=== PATIENT | male | born 1985 | race Two or more races ===

== ENCOUNTER → 2024-09-04 | Outpatient (CLI) | payer OTHER, SELFPAY ==
[2024-09-04 09:19] LABS: Basophils # (Auto) 0.2 Thou/mm3 (0.0-0.2); Basophils % (Auto) 2 % (0-2.5); Eosinophils # (Auto) 0.3 Thou/mm3 (0.0-0.5); Eosinophils % (Auto) 3 % (0-10); Hematocrit 43.4 % (41.0-53.0); Hemoglobin 14.8 g/dL (13.5-16.0); Immature Granulocytes % (Auto) 0 % (0-0); Immature Granulocytes Auto 0.03 Thou/mm3 (0.00-0.00); Lymphocytes # (Auto) 3.8 Thou/mm3 (1.0-4.8); Lymphocytes % (Auto) 36 % (10-50); Mean Corpuscular HGB Conc 34.1 g/dl (31.0-37.0); Mean Corpuscular Hemoglobin 29.6 pg (25.0-35.0); Mean Corpuscular Volume 87 fL (80-100); Monocytes # (Auto) 0.6 Thou/mm3 (0.0-0.8); Monocytes % (Auto) 6 % (0-12); Neutrophils # (Auto) 5.6 Thou/mm3 (1.8-7.7); Neutrophils % (Auto) 53 % (37-80); Nucleated Red Blood Cell % 0 /100 WBC (0); Platelet Count 333 Thou/mm3 (140-440); RDW Standard Deviation 40.3 fL (35.1-43.9); White Blood Count 10.5 Thou/mm3 (3.8-10.6)
[2024-09-04 09:46] LABS: Alanine Aminotransferase 39 U/L (10-49); Albumin, Serum 5.1 gm/dL (3.5-5.0); Alkaline Phosphatase 72 U/L (46-116); Anion Gap 8 (7-16); Aspartate Amino Transferase 27 U/L (0-34); BUN/Creatinine Ratio 10 Ratio (12-20); Bilirubin,Total 0.6 mg/dL (0.3-1.2); Blood Urea Nitrogen 9 mg/dL (9-23); Calcium 9.7 mg/dL (8.3-10.6); Calcium (Corrected) 9.7 mg/dL (8.5-10.1); Carbon Dioxide 24.1 mMol/L (20.0-31.0); Chloride 102 mMol/L (98-107); Creatinine (Component) 0.9 mg/dL (0.6-1.3); Free T4 (Free Thyroxine) 1.42 ng/dL (0.89-1.76); Globulin 2.6 gm/dL (2.3-3.5); Glucose 135 mg/dL (74-106); Osmolality,Calculated 268 (275-295); Sodium 134 mMol/L (136-145); Thyroid Stimulating Hormone 2.25 uIU/mL (0.55-4.78); Total Protein 7.7 gm/dL (5.7-8.2); eGFR > 60 See Note
[2024-09-10 22:06] LABS: Thyroglobulin Antibodies <1 IU/mL (< OR = 1)
== END | disposition home or self-care (01) ==
LOC: COPL 08:47 → SCTO 12:45
PROVIDERS: PCP Internal Medicine; Referring Provider Radiology Therapeutic Radiology; Visit Provider Radiology Therapeutic Radiology
DX: C73 Malignant neoplasm of thyroid gland (principal)
CPT/HCPCS: 36415; 80053; 84432; 84439; 84443; 85025; 86800

== ENCOUNTER → 2024-11-11 | Outpatient (CLI) | payer OTHER, SELFPAY ==
[2024-11-11 09:21] LABS: Basophils # (Auto) 0.1 Thou/mm3 (0.0-0.2); Basophils % (Auto) 1 % (0-2.5); Eosinophils # (Auto) 0.4 Thou/mm3 (0.0-0.5); Eosinophils % (Auto) 4 % (0-10); Hematocrit 41.7 % (41.0-53.0); Hemoglobin 14.2 g/dL (13.5-16.0); Immature Granulocytes % (Auto) 0 % (0-0); Immature Granulocytes Auto 0.04 Thou/mm3 (0.00-0.00); Lymphocytes # (Auto) 3.4 Thou/mm3 (1.0-4.8); Lymphocytes % (Auto) 37 % (10-50); Mean Corpuscular HGB Conc 34.1 g/dl (31.0-37.0); Mean Corpuscular Hemoglobin 29.2 pg (25.0-35.0); Mean Corpuscular Volume 86 fL (80-100); Monocytes # (Auto) 0.5 Thou/mm3 (0.0-0.8); Monocytes % (Auto) 6 % (0-12); Neutrophils # (Auto) 4.6 Thou/mm3 (1.8-7.7); Neutrophils % (Auto) 51 % (37-80); Nucleated Red Blood Cell % 0 /100 WBC (0); Platelet Count 327 Thou/mm3 (140-440); RDW Standard Deviation 41.2 fL (35.1-43.9); Red Blood Count 4.86 Miln/mm3 (4.50-5.90); White Blood Count 9.1 Thou/mm3 (3.8-10.6)
[2024-11-11 09:39] LABS: Alanine Aminotransferase 39 U/L (10-49); Albumin, Serum 4.7 gm/dL (3.5-5.0); Albumin/Globulin Ratio 1.7 (1.2-2.2); Alkaline Phosphatase 69 U/L (46-116); Anion Gap 8 (7-16); Aspartate Amino Transferase 22 U/L (0-34); BUN/Creatinine Ratio 15 Ratio (12-20); Bilirubin,Total 0.8 mg/dL (0.3-1.2); Blood Urea Nitrogen 12 mg/dL (9-23); Calcium 9.5 mg/dL (8.3-10.6); Calcium (Corrected) 9.5 mg/dL (8.5-10.1); Carbon Dioxide 25.9 mMol/L (20.0-31.0); Cardiac Risk Estimate 4.3 RATIO (4.0-6.7); Chloride 100 mMol/L (98-107); Cholesterol 206 mg/dL (132-200); Creatinine (Component) 0.8 mg/dL (0.6-1.3); Globulin 2.7 gm/dL (2.3-3.5); Glucose 157 mg/dL (74-106); HDL Cholesterol 48 mg/dL (40-60); LDL Cholesterol,Calculated 133 mg/dL (0-130); Osmolality,Calculated 270 (275-295); Potassium 4.3 mMol/L (3.4-5.1); Sodium 134 mMol/L (136-145); Total Protein 7.4 gm/dL (5.7-8.2); Triglycerides 126 mg/dL (30-150); eGFR > 60 See Note
[2024-11-11 09:50] LABS: Glucose Estimated Average 160 mg/dL (80-131); Hemoglobin A1C 7.2 % Hgb (4.8-6.0)
== END | disposition home or self-care (01) ==
LOC: COPL 08:34
PROVIDERS: PCP Family Medicine; Referring Provider Family Medicine; Visit Provider Family Medicine
DX: E11.65 Type 2 diabetes mellitus with hyperglycemia (principal); G56.00 Carpal tunnel syndrome, unspecified upper limb; M54.50 Low back pain, unspecified; E03.9 Hypothyroidism, unspecified; I10 Essential (primary) hypertension; E78.5 Hyperlipidemia, unspecified
CPT/HCPCS: 36415; 80053; 80061; 83036; 84443; 85025

== ENCOUNTER 2024-11-14 13:01 | Outpatient (RCR) | payer OTHER, SELFPAY ==
--- NOTE | 2024-11-14 14:02 | CTCFLWUP_ITS ---
[facility] [address] [place], [place] [address] FOLLOW-UP NOTE Date: 11/14/2024 MR#: [id number] Name: LIANE RUIZ : 1985 Dx: [id number] Malignant neoplasm of thyroid gland Identification. 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 pT1b pN1a 7 of 9 lymph nodes positive. Patient initially had excision of left neck mass 05/11/2023 which was papillary thyroid carcinoma. Received 101 mCi administered 08/01/2023. No sign of mets whole-body scan 08/08/2023. For his age group this is stage I. Thyroid ultrasound 02/09/2024 unremarkable with repeat 08/15/2024 revealing soft tissue mass in the th yroid bed. CT neck 09/10/2024 no soft tissue tumor mass in thyroid bed with bilateral carotid triangle lymphaden opathy largest 9 mm. Patient kept euthyroid on thyroid medication 150 mcg 09/04/2024 Free T41.42 TSH 2.25. Thyroglobul in however carin from 2.9 - 4.0 and 09/04/2024. Check thyroid functions thyroglobulin today. Will call patient with results. Electronically signed by: Robb Bello M.D. 11/14/2024 1:59 PM
== END 2024-11-22 23:59 | disposition home or self-care (01) ==
LOC: SCTC 13:01
PROVIDERS: PCP Family Medicine; Referring Provider Family Medicine; Visit Provider Radiology Therapeutic Radiology
DX: C73 Malignant neoplasm of thyroid gland (principal); Z92.3 Personal history of irradiation
CPT/HCPCS: 99213; G0463

== ENCOUNTER → 2024-11-14 | Outpatient (CLI) | payer OTHER, SELFPAY ==
[2024-11-14 16:38] LABS: Thyroid Stimulating Hormone 5.61 uIU/mL (0.55-4.78)
[2024-11-20 11:17] LABS: Thyroglobulin Antibodies <1 IU/mL (< OR = 1)
[2024-11-21 06:37] LABS: Thyroglobulin 3.6 ng/mL
== END | disposition home or self-care (01) ==
LOC: SCTO 14:41
PROVIDERS: PCP Family Medicine; Referring Provider Radiology Therapeutic Radiology; Visit Provider Radiology Therapeutic Radiology
DX: C73 Malignant neoplasm of thyroid gland (principal)
CPT/HCPCS: 36415; 84432; 84439; 84443; 86800

== ENCOUNTER → 2024-11-15 | Outpatient (CLI) | payer OTHER, SELFPAY ==
[2024-11-15 16:29] LABS: Amphetamine/Methamp Scrn,U Negative (Negative); Barbiturate Screen,Urine Negative (Negative); Benzodiazepines Screen,Urine Negative (Negative); Benzoylecgonine Screen, Ur Negative (Negative); Fentanyl Screen,Urine Negative (Negative); Opiate Screen,Urine Positive (Negative); THC Screen,Urine Negative (Negative)
== END | disposition home or self-care (01) ==
LOC: SLDO 14:29
PROVIDERS: PCP Family Medicine; Referring Provider Family Medicine; Visit Provider Family Medicine
DX: Z79.891 Long term (current) use of opiate analgesic (principal)
CPT/HCPCS: 80307

== ENCOUNTER → 2024-12-13 | Outpatient (CLI) | payer OTHER, SELFPAY ==
--- NOTE | 2024-12-13 07:00 | XR_ITS ---
Examination: MRI lumbar spine without contrast Date and time of exam: December 13, 2024 0709 hours Comparison March 21, 2019 INDICATIONS: Low back pain 20 years, radiating into the legs with numbness paresthesias and weakness in the legs Technique: Multiple MRI axial and sagittal sections lumbar spine. Sagittal T2-weighted images, TR 3500, TE 118 T1 weighted transverse sections, TR 688 T8.5, T2-weighted sagittal sections T1 weighted sagittal sections TR 621, TE 30 T2 axial sections, TR 4, 190, TE 84. Findings: Adequate alignment lumbar vertebral bodies No lumbar fracture Disc desiccation L3-L4, L4-L5 Moderate disc narrowing L3-L4 No spondylolisthesis L5-S1 no disc protrusion L4-L5 7 mm left paracentral disc bulge indenting the ventral margin thecal sac and displacing the left L5 nerve root L3-L4 5 mm central lumbar disc bulge L2-L3 no disc protrusion L1-L2 no disc protrusion IMPRESSION: L4-L5 7 mm left paracentral disc bulge displacing the left L5 nerve root L3-L4 5 mm central lumbar disc bulge
== END | disposition home or self-care (01) ==
LOC: SMRI 06:42
PROVIDERS: PCP Family Medicine; Referring Provider Family Medicine; Visit Provider Family Medicine
DX: M51.369 Other intervertebral disc degeneration, lumbar region without mention of lumbar back pain or lower extremity pain (principal)
CPT/HCPCS: 72148

== ENCOUNTER → 2025-01-24 | Outpatient (CLI) | payer OTHER, SELFPAY ==
[2025-01-24 09:39] LABS: Glucose Estimated Average 137 mg/dL (80-131); Hemoglobin A1C 6.4 % Hgb (4.8-6.0)
[2025-01-24 09:58] LABS: Alanine Aminotransferase 46 U/L (10-49); Albumin, Serum 4.9 gm/dL (3.5-5.0); Albumin/Globulin Ratio 1.8 (1.2-2.2); Alkaline Phosphatase 71 U/L (46-116); Anion Gap 12 (7-16); Aspartate Amino Transferase 28 U/L (0-34); BUN/Creatinine Ratio 12 Ratio (12-20); Bilirubin,Total 0.8 mg/dL (0.3-1.2); Blood Urea Nitrogen 11 mg/dL (9-23); Calcium 9.9 mg/dL (8.3-10.6); Calcium (Corrected) 9.9 mg/dL (8.5-10.1); Carbon Dioxide 24.7 mMol/L (20.0-31.0); Chloride 101 mMol/L (98-107); Creatinine (Component) 0.9 mg/dL (0.6-1.3); Globulin 2.8 gm/dL (2.3-3.5); Glucose 123 mg/dL (74-106); Osmolality,Calculated 276 (275-295); Sodium 138 mMol/L (136-145); Thyroid Stimulating Hormone 0.32 uIU/mL (0.55-4.78); Total Protein 7.7 gm/dL (5.7-8.2); eGFR > 60 See Note
[2025-01-24 10:11] LABS: Cardiac Risk Estimate 4.3 RATIO (4.0-6.7); Cholesterol 193 mg/dL (132-200); HDL Cholesterol 45 mg/dL (40-60); LDL Cholesterol,Calculated 126 mg/dL (0-130); Triglycerides 110 mg/dL (30-150)
== END | disposition home or self-care (01) ==
LOC: COPL 08:50
PROVIDERS: PCP Family Medicine; Referring Provider Family Medicine; Visit Provider Family Medicine
DX: E11.311 Type 2 diabetes mellitus with unspecified diabetic retinopathy with macular edema (principal); M54.17 Radiculopathy, lumbosacral region; I10 Essential (primary) hypertension; G56.03 Carpal tunnel syndrome, bilateral upper limbs; G47.30 Sleep apnea, unspecified
CPT/HCPCS: 36415; 80053; 80061; 83036; 84436; 84443

== ENCOUNTER 2025-02-13 12:52 | Outpatient (RCR) | payer OTHER, SELFPAY ==
--- NOTE | 2025-02-13 13:37 | CTCFLWUP_ITS ---
[facility] [address] [place], [place] [address] FOLLOW-UP NOTE Date: 02/13/2025 MR#: [id number] Name: LIANE RUIZ : 1985 Dx: [id number] Malignant neoplasm of thyroid gland Identification. 39-year-old gentleman with thyroid carcinoma papillary follicular type underwent total thyroidectomy 06/13/2023 revealing 1.2 x 1 x 1 cm papillary carcinoma follicular variant right lobe 7 positive nodes [id number] 7 of 9 lymph nodes positive. Patient initially had excision of left neck mass 05/11/2023 which was papillary thyroid carcinoma. Received 101 mCi of radioactive iodine 08/01/2023 with no signs of mets whole- body scan 07/29/2023. For his age group this is stage I. Thyroid ultrasound 02/09/2024 unremarkable with repeat 08/15/2024 revealing soft tissue mass in the thyroid bed. Most recent CT of the neck 09/10/2024 showed no soft tissue tumor mass in thyroid bed with bilateral carotid triangle lymphadenopathy largest 9 mm. Most recent lab January 24, 2025 T4 14 (H) TSH 0.32 (L) Patient has been combining Synthroid 150 with Synthroid 175 and based on the new blood test is primary care provider Recommended cutting it to 125 and 150 in alternating days. I believe that this is appropriate. Will check his labs based on the now lower dose of thyroid medication and check his thyroglobulin and thyroglobulin antibody along with new T4 and TSH. Patient also having some chest discomfort along with blood pressure problem which is being followed by primary care physician as well. I will see him back in 3 months with new labs and likely order an ultrasound of his neck. Electronically signed by: Robb Bello M.D. 02/13/2025 1:35 PM
== END 2025-02-19 23:59 | disposition home or self-care (01) ==
LOC: SCTC 12:52
PROVIDERS: PCP Family Medicine; Referring Provider Family Medicine; Visit Provider Radiology Therapeutic Radiology
DX: C73 Malignant neoplasm of thyroid gland (principal); E89.0 Postprocedural hypothyroidism; Z92.3 Personal history of irradiation; Z79.890 Hormone replacement therapy
CPT/HCPCS: 99213; G0463

== ENCOUNTER → 2025-05-09 | Outpatient (CLI) | payer MEDICARE, OTHER, SELFPAY ==
[2025-05-09 13:23] LABS: Basophils # (Auto) 0.2 Thou/mm3 (0.0-0.2); Basophils % (Auto) 2 % (0-2.5); Eosinophils # (Auto) 0.4 Thou/mm3 (0.0-0.5); Eosinophils % (Auto) 3 % (0-10); Hematocrit 38.9 % (41.0-53.0); Hemoglobin 13.7 g/dL (13.5-16.0); Immature Granulocytes Auto 0.05 Thou/mm3 (0.00-0.00); Lymphocytes # (Auto) 4.1 Thou/mm3 (1.0-4.8); Lymphocytes % (Auto) 34 % (10-50); Mean Corpuscular HGB Conc 35.2 g/dl (31.0-37.0); Mean Corpuscular Hemoglobin 30.2 pg (25.0-35.0); Mean Corpuscular Volume 86 fL (80-100); Monocytes # (Auto) 0.8 Thou/mm3 (0.0-0.8); Monocytes % (Auto) 7 % (0-12); Neutrophils # (Auto) 6.5 Thou/mm3 (1.8-7.7); Neutrophils % (Auto) 54 % (37-80); Nucleated Red Blood Cell # 0.00 Thou/mm3 (0.00-0.00); Nucleated Red Blood Cell % 0 /100 WBC (0); Platelet Count 387 Thou/mm3 (140-440); RDW Standard Deviation 41.2 fL (35.1-43.9); Red Blood Count 4.54 Miln/mm3 (4.50-5.90); White Blood Count 12.0 Thou/mm3 (3.8-10.6)
[2025-05-09 13:33] LABS: Glucose Estimated Average 143 mg/dL (80-131); Hemoglobin A1C 6.6 % Hgb (4.8-6.0)
[2025-05-09 13:36] LABS: Alanine Aminotransferase 44 U/L (10-49); Albumin, Serum 4.9 gm/dL (3.5-5.0); Albumin/Globulin Ratio 1.7 (1.2-2.2); Alkaline Phosphatase 68 U/L (46-116); Anion Gap 11 (7-16); Aspartate Amino Transferase 30 U/L (0-34); BUN/Creatinine Ratio 9 Ratio (12-20); Bilirubin,Total 0.6 mg/dL (0.3-1.2); Blood Urea Nitrogen 9 mg/dL (9-23); Calcium 9.5 mg/dL (8.3-10.6); Calcium (Corrected) 9.5 mg/dL (8.5-10.1); Carbon Dioxide 28.4 mMol/L (20.0-31.0); Cardiac Risk Estimate 4.7 RATIO (4.0-6.7); Chloride 103 mMol/L (98-107); Cholesterol 219 mg/dL (132-200); Creatinine (Component) 1.0 mg/dL (0.6-1.3); Free T4 (Free Thyroxine) 1.39 ng/dL (0.89-1.76); Globulin 2.9 gm/dL (2.3-3.5); Glucose 92 mg/dL (74-106); HDL Cholesterol 47 mg/dL (40-60); LDL Cholesterol,Calculated 138 mg/dL (0-130); Osmolality,Calculated 281 (275-295); Potassium 4.2 mMol/L (3.4-5.1); Sodium 142 mMol/L (136-145); Thyroid Stimulating Hormone 1.75 uIU/mL (0.55-4.78); Total Protein 7.8 gm/dL (5.7-8.2); Triglycerides 172 mg/dL (30-150); eGFR > 60 See Note
[2025-05-09 13:37] LABS: T4 (Thyroxine) 10.1 mcg/dL (4.5-10.9)
[2025-05-15 06:27] LABS: Thyroglobulin Antibodies* <1 IU/mL (< OR = 1)
== END | disposition home or self-care (01) ==
LOC: COPL 12:10
PROVIDERS: PCP Family Medicine; Referring Provider Family Medicine; Visit Provider Family Medicine
DX: C73 Malignant neoplasm of thyroid gland (principal); E03.9 Hypothyroidism, unspecified; E11.9 Type 2 diabetes mellitus without complications
CPT/HCPCS: 36415; 80053; 80061; 83036; 84436; 84439; 84443; 85025; 86800

== ENCOUNTER 2025-05-15 13:44 | Outpatient (RCR) | payer OTHER, MEDICARE, SELFPAY ==
--- NOTE | 2025-05-15 14:28 | CTCFLWUP_ITS ---
[facility] Pleite[facility] [address] [place], [place] [address] FOLLOW-UP NOTE Date: 05/15/2025 MR#: [id number] Name: LIANE RUIZ : 1985 Dx: [id number] Malignant neoplasm of thyroid gland Identification. 39-year-old gentleman with thyroid carcinoma papillary follicular type total thyroidectomy 06/13/2023 revealing 1.2 x 1 x 1 cm papillary carcinoma follicular variant right lobe 7 positive nodes, [id number] 7 of 9 lymph nodes positive. Received 101 mCi of radioiodine 08/01/2023 no signs of mets whole-body scan of 07/29/2023. For his age group this is stage I. Soft tissue ultrasound 08/15/2024 soft tissue mass in the thyroid bed noted. CT of the neck 09/10/2024 bilateral carotid triangle lymphadenopathy largest in left carotid triangle 9 mm. No soft tissue tumor mass in thyroid bed. Labs 05/09/2025 TSH 1.75 Free T41.39 T4 10.1 euthyroid. Last thyroglobulin was 3.6 on 11/14/2024 Patient currently dealing with severe back problem with recent MRI 12/13/2024 showing no sign of any malignancy at that site. A#1. Stage I papillary follicular thyroid carcinoma status post total thyroidectomy postop radioiodine with no sign of mets 08/01/2023. A#2. Patient's primary care physician Dr. Giulia Crawford managing her thyroid hormones between 125 and 150 mcg/day. Euthyroid on recent labs 05/09/2025. A#3. Will check thyroglobulin and thyroid antibody before next visit along with ultrasound of the neck. Cc: Isaac Crawford MD Electronically signed by: Robb Bello M.D. 05/15/2025 2:26 PM
== END 2025-05-22 23:59 | disposition home or self-care (01) ==
LOC: SCTC 13:44
PROVIDERS: PCP Family Medicine; Referring Provider Family Medicine; Visit Provider Radiology Therapeutic Radiology
DX: C73 Malignant neoplasm of thyroid gland (principal); E89.0 Postprocedural hypothyroidism; Z92.3 Personal history of irradiation
CPT/HCPCS: 99213; G0463

== ENCOUNTER → 2025-06-19 | Outpatient (CLI) | payer OTHER, MEDICARE, SELFPAY ==
--- NOTE | 2025-06-19 13:00 | XR_ITS ---
Examination: Thyroid sonography complete TECHNIQUE: Grayscale sonographic images thyroid bed Date and time: June 19, 2025 1306 hours 1306 hours, comparison August 15, 2024 INDICATIONS: History thyroid cancer thyroidectomy July 2023. FINDINGS: No thyroid tissue Complex mass in the posterior right thyroid fossa measuring 3.2 x 1.4 x 1.8 cm IMPRESSION: Complex soft tissue mass in the posterior right thyroid fossa, 3.2 x 1.4 x 1.8 cm, consider recurrent tumor, metastatic lymphadenopathy Recommend CT soft tissue neck post intravenous contrast follow-up
== END | disposition home or self-care (01) ==
PROVIDERS: Referring Provider Radiology Therapeutic Radiology; Visit Provider Radiology Therapeutic Radiology
DX: R22.1 Localized swelling, mass and lump, neck (principal); C73 Malignant neoplasm of thyroid gland
CPT/HCPCS: 76536

== ENCOUNTER 2025-06-25 07:13 | Outpatient (RCR) | payer OTHER, MEDICARE, SELFPAY ==
--- NOTE | 2025-06-25 10:27 | CTCFLWUP_ITS ---
Stan Pleitez [facility] Include [facility] [address] [place], [place] [address] FOLLOW-UP NOTE Date: 06/25/2025 MR#: [id number] Name: LIANE RUIZ : 1985 Dx: [id number] Malignant neoplasm of thyroid gland Identification. 40-year-old gentleman with thyroid carcinoma papillary follicular type total thyroidectomy 06/13/2023. 1.2 x 1 x 1 cm papillary carcinoma follicular variant right lobe 7 positive nodes/of 9 removed positive.. [id number] Received 100 mCi of I-131 and whole-body scan 08/01/2023 was negative for mets. CT 09/10/2024 bilateral carotid triangle lymphadenopathy with no soft tissue tumor mass in thyroid gland. Ultrasound 06/19/2025 shows complex soft tissue mass right thyroid area 3.2 x 1.4 x [address] scan recommended. Most recent labs 05/09/2025 thyroglobulin less than 1 euthyroid in terms of TSH T4. Currently on 175 mcg/150 mcg of Synthroid. Euthyroid on lab 05/09/2025. Thyroglobulin less than 1. Patient states been more tired than usual and having headaches Lungs clear. A#1. Stage I papillary follicular right lobe status post total thyroidectomy followed by total by iodine 08/01/2023. A#2. Most recent ultrasound suggests mass right thyroid area. A#3. Shall get CT scan with contrast and new labs including thyroglobulin. Patient remains euthyroid managed by primary care physician. A#4. Will see him back in 3 months. Cc: [facility]. Electronically signed by: Robb Bello M.D. 06/25/2025 10:25 AM
== END 2025-07-22 23:59 | disposition home or self-care (01) ==
LOC: SCTC 07:13
PROVIDERS: PCP Family Medicine; Referring Provider Radiology Therapeutic Radiology; Visit Provider Radiology Therapeutic Radiology
DX: C73 Malignant neoplasm of thyroid gland (principal); E89.0 Postprocedural hypothyroidism; Z92.3 Personal history of irradiation; Z79.890 Hormone replacement therapy; R22.1 Localized swelling, mass and lump, neck
CPT/HCPCS: 99212; G0463

== ENCOUNTER → 2025-07-03 | Outpatient (CLI) | payer OTHER, MEDICARE, SELFPAY ==
[2025-07-03 09:40] LABS: Alanine Aminotransferase 46 U/L (10-49); Albumin, Serum 4.9 gm/dL (3.5-5.0); Albumin/Globulin Ratio 1.9 (1.2-2.2); Alkaline Phosphatase 67 U/L (46-116); Anion Gap 9 (7-16); Aspartate Amino Transferase 33 U/L (0-34); BUN/Creatinine Ratio 9 Ratio (12-20); Bilirubin,Total 0.5 mg/dL (0.3-1.2); Blood Urea Nitrogen 7 mg/dL (9-23); Calcium 9.7 mg/dL (8.3-10.6); Calcium (Corrected) 9.7 mg/dL (8.5-10.1); Carbon Dioxide 27.3 mMol/L (20.0-31.0); Chloride 102 mMol/L (98-107); Creatinine (Component) 0.8 mg/dL (0.6-1.3); Globulin 2.6 gm/dL (2.3-3.5); Glucose 106 mg/dL (74-106); Osmolality,Calculated 273 (275-295); Phosphorous 3.3 mg/dL (2.4-5.1); Potassium 4.4 mMol/L (3.4-5.1); Sodium 138 mMol/L (136-145); Total Protein 7.5 gm/dL (5.7-8.2); eGFR > 60 See Note
[2025-07-09 15:34] LABS: Thyroglobulin Antibodies <1 IU/mL (< OR = 1)
[2025-07-10 06:34] LABS: Thyroglobulin 5.1 ng/mL
== END | disposition home or self-care (01) ==
LOC: COPL 08:37
PROVIDERS: PCP Family Medicine; Referring Provider Radiology Therapeutic Radiology; Visit Provider Radiology Therapeutic Radiology
DX: I10 Essential (primary) hypertension (principal); C73 Malignant neoplasm of thyroid gland
CPT/HCPCS: 36415; 80053; 84100; 84432; 86800

== ENCOUNTER 2025-07-05 21:04 | Emergency (ER) | payer OTHER, MEDICARE, SELFPAY ==
[2025-07-05 21:06] VITALS: BMI 39.1
[2025-07-05 21:23] VITALS: BP 144/97; PULSE 99; RESP 18; TEMP 37.2; O2SAT 97
--- NOTE | 2025-07-05 21:38 | XR_ITS ---
Examination: CT soft tissue neck, with intravenous contrast. 2-D coronal reconstructions. 2-D sagittal reconstructions. Date and time of exam :July 05, 2025 10:50 PM Indications: Thyroid cancer diagnosis 2 years ago, with right-sided palpable neck mass 2 weeks. CTDI: vol (mGy):15.42 DLP: (mGycm):448 Technique: 1.25 mm axial sections of the neck of the obtained. Coronal and sagittal reconstructions have been obtained. Intravenous contrast administered 50 cc Isovue-370. Low dose protocols were performed. One or more of the following dose reduction techniques were used; automated exposure control, adjustment of the mA and/or KV according to patient size, use of iterative reconstruction technique. Findings: Symmetrical nasopharynx oropharynx No pathologic carotid triangle lymphadenopathy Larger right parotid gland Larger left submandibular gland The larynx appears normal Residual probable thyroid tissue axial image 66, on the right side, 16 mm Normal epiglottis Impression: Larger right parotid gland, consider right parotiditis Larger left submandibular gland, clinical correlation advised, MRI soft tissue neck follow-up would best assess for sialoadenitis 16mm nodule in the right paratracheal region probably residual thyroid tissue Recommend ultrasound soft tissue neck follow-up specific attention to the thyroid bed
--- NOTE | 2025-07-05 21:38 | XR_ITS ---
Examination: PA chest single view Chest single view Date and time: July 07, 2025 10:34 PM Indications: Onset today. Findings: Minimal prominence of ventricle. No pneumonia or pulmonary edema. The osseous structures are intact Impression: No active disease
--- NOTE | 2025-07-05 21:38 | EKG_ITS ---
[facility] Test Date: 2025-07-05 Pat Name: LIANE RUIZ Department: Room: - Gender: Male [employer]: : 1985 Requested By: Reg Velazquez Order Number: [id number] Reading MD: Reg Velazquez Measurements Intervals [place] Rate: 99 P: 56 MS: 160 QRS: -29 QRSD: 94 T: 72 QT: 371 QTc: 476 Interpretive Statements SINUS RHYTHM POSSIBLE ANTERIOR MYOCARDIAL INFARCTION , PROBABLY OLD [30 ms Q WAVE IN V3/V4, OR R < 0.2 mV IN V4] Compared to ECG 05/08/2023 10:08:20 Myocardial infarct finding now present Sinus bradycardia no longer present /store/S0/[id number]/ecg/[id number].pdf
--- NOTE | 2025-07-05 21:38 | PD.EDRME ---
Rapid Medical Screening Exam RME Arrival date/time: 07/05/25 21:04 This is a case of 40-year-old male status post thyroidectomy 2 years ago came in in the emergency room due to shortness of breath and chest pain worsening of the symptoms this patient decided to start consult here in the emergency room patient also concerned with neck mass and requesting a CT of the neck Chief Complaint: Shortness of Breath/Dyspnea Vital signs: Vital Signs Temperature 98.9 F 07/05/25 21:23 Pulse Rate 99 07/05/25 21:23 Respiratory Rate 18 07/05/25 21:23 Blood Pressure 144/97 H 07/05/25 21:23 Pulse Oximetry (%) 97 07/05/25 21:23 Oxygen Delivery Method Room Air 07/05/25 21:23
[2025-07-05] MEDS: HYDROcodone/APAP 5/325 TABLET 1 TAB PO (21:56)
[2025-07-05 22:23] LABS: Basophils # (Auto) 0.2 Thou/mm3 (0.0-0.2); Basophils % (Auto) 1 % (0-2.5); Eosinophils # (Auto) 0.6 Thou/mm3 (0.0-0.5); Eosinophils % (Auto) 5 % (0-10); Hematocrit 40.0 % (41.0-53.0); Hemoglobin 13.9 g/dL (13.5-16.0); Immature Granulocytes Auto 0.03 Thou/mm3 (0.00-0.00); Lymphocytes # (Auto) 4.7 Thou/mm3 (1.0-4.8); Lymphocytes % (Auto) 38 % (10-50); Mean Corpuscular HGB Conc 34.8 g/dl (31.0-37.0); Mean Corpuscular Hemoglobin 30.2 pg (25.0-35.0); Mean Corpuscular Volume 87 fL (80-100); Monocytes # (Auto) 0.8 Thou/mm3 (0.0-0.8); Monocytes % (Auto) 6 % (0-12); Neutrophils # (Auto) 5.9 Thou/mm3 (1.8-7.7); Neutrophils % (Auto) 49 % (37-80); Nucleated Red Blood Cell # 0.00 Thou/mm3 (0.00-0.00); Nucleated Red Blood Cell % 0 /100 WBC (0); Platelet Count 354 Thou/mm3 (140-440); RDW Standard Deviation 41.3 fL (35.1-43.9); Red Blood Count 4.61 Miln/mm3 (4.50-5.90); White Blood Count 12.1 Thou/mm3 (3.8-10.6)
[2025-07-05 22:38] LABS: B-Type Natriuretic Peptide < 20 pg/mL (0-100)
[2025-07-05 22:40] LABS: Alanine Aminotransferase 55 U/L (10-49); Albumin, Serum 5.2 gm/dL (3.5-5.0); Albumin/Globulin Ratio 2.2 (1.2-2.2); Alkaline Phosphatase 71 U/L (46-116); Anion Gap 14 (7-16); Aspartate Amino Transferase 41 U/L (0-34); BUN/Creatinine Ratio 7 Ratio (12-20); Bilirubin,Total 0.4 mg/dL (0.3-1.2); Blood Urea Nitrogen 7 mg/dL (9-23); Calcium 9.8 mg/dL (8.3-10.6); Calcium (Corrected) 9.8 mg/dL (8.5-10.1); Carbon Dioxide 23.2 mMol/L (20.0-31.0); Chloride 102 mMol/L (98-107); Creatinine (Component) 1.0 mg/dL (0.6-1.3); Estimated Creatinine Clearance 115.7 mL/min (>60); Globulin 2.4 gm/dL (2.3-3.5); Glucose 164 mg/dL (74-106); Osmolality,Calculated 279 (275-295); Potassium 3.5 mMol/L (3.4-5.1); Sodium 139 mMol/L (136-145); Total Protein 7.6 gm/dL (5.7-8.2); Troponin I < 0.002 ng/mL (0.0-0.045); eGFR > 60 See Note
[2025-07-05 23:34] VITALS: BP 120/68; PULSE 89; RESP 19; O2SAT 97
--- NOTE | 2025-07-05 23:35 | PD.EDSOB ---
ED SOB =RME/HPI General Chief Complaint: Shortness of Breath/Dyspnea Stated Complaint: GROWTH TO NECK, HARD TIME BREATHING, PANIC, HUERTA Time Seen by Provider: 07/05/25 21:39 Arrival date/time: 07/05/25 21:04 RME / HPI RME / HPI Narrative: 07/05/25 21:04 This is a case of 40-year-old male status post thyroidectomy 2 years ago came in in the emergency room due to shortness of breath and chest pain worsening of the symptoms this patient decided to start consult here in the emergency room patient also concerned with neck mass and requesting a CT of the neck ------- Dr. Sandy?s Main ED Evaluation: 40yo male here with progressively worsening dyspnea on exertion and at rest x 3 weeks duration. No productive cough, fever, or chills. Reports symptoms worsen with supine position. No BLE pain or swelling. Also reports chest tight increasing with activity and generalized joint pain. No pleuritic component. Nondrinker. Nonsmoker. PSH included thyroidectomy, cholecystectomy. Cardiac Risk Factors: + DM, HTN. No HLD, familial cardiac history, or tobacco use. PE Risk Factors: no recent prolonged travel, no prior personal or family history of DVT, no testosterone injections. Related Data Home Medications ?Medication ?Instructions ?Recorded ?Confirmed amlodipine 10 mg tablet 10 mg PO DAILY 02/28/22 06/12/23 gabapentin 300 mg capsule 300 mg PO TID 02/28/22 06/12/23 glimepiride 4 mg tablet 4 mg PO DAILY 02/28/22 06/12/23 hydrocodone 7.5 mg-acetaminophen 1 tab PO Q6H PRN Pain 02/28/22 06/12/23 325 mg tablet Held on 06/13/23. Instructions: Resume on 06/18/23. losartan 100 mg tablet 100 mg PO QDAY 02/28/22 06/12/23 metformin 500 mg tablet 1,000 mg PO BID 02/28/22 06/12/23 propranolol 80 mg capsule,24 80 mg PO QDAY 02/28/22 06/12/23 hr,extended release sertraline 50 mg tablet 100 mg PO DAILY 02/28/22 06/12/23 dulaglutide 1.5 mg/0.5 mL 1.5 mg subcut QWEEK 03/03/23 06/12/23 subcutaneous pen injector (Trulicity) lorazepam 0.5 mg tablet 0.5 mg PO Q12H PRN Anxiety 03/03/23 06/12/23 aripiprazole 5 mg tablet (Abilify) 5 mg PO QDAY 06/12/23 06/12/23 Previous Rx's ?Medication ?Instructions ?Recorded calcium carbonate (Calcium 500) 500 mg PO BID #30 tabs 06/13/23 docusate sodium 100 mg capsule 100 mg PO BID #40 caps 06/13/23 (Colace) hydrocodone 10 mg-acetaminophen 1 tab PO Q6H PRN pain (scale score 06/13/23 325 mg tablet 7-10) #30 tabs ondansetron 4 mg disintegrating 4 mg PO Q6H PRN nausea and 06/13/23 tablet vomiting #20 tabs albuterol sulfate 90 mcg/actuation 2 puff inhalation Q6H PRN 07/06/25 aerosol inhaler shortness of breath or wheezing #6.7 grams hydrocodone 5 mg-acetaminophen 325 1 tab PO Q8H PRN pain #14 tabs 07/06/25 mg tablet naproxen 250 mg tablet 250 mg PO BID PRN pain #10 tabs 07/06/25 Allergies Allergy/AdvReac Type Severity Reaction Status Date / Time No Known Allergies Allergy Verified 07/05/25 21:05 Review of Systems Review of Systems Systems Reviewed: All systems reviewed, normal except as documented Past Medical History Past Medical History NEUROLOGIC: Positive Neurological Disorders and Peripheral Neuropathy; Negative Seizures CARDIAC: Positive Cardiac Disorders and Hypertension; Negative Congestive Heart Failure RESPIRATORY: Positive Sleep Apnea; Negative Chronic Obstructive Pulmonary Disease (COPD) or Asthma GASTROINTESTINAL: Positive Gastrointestinal Disorders, Gall Bladder Disease and Obesity; Negative Hepatitis GENITOURINARY: Negative Genitourinary Disorders or Renal Disease MUSCULOSKELETAL: Positive Musculoskeletal Disorders, Arthritis, Degenerative Disk Disease and Carpal Tunnel Syndrome ENT: Positive Glaucoma ENDOCRINE: Positive Endocrine Disorders, Diabetes Mellitus Type 2 and Hypoglycemia; Negative Diabetes Mellitus Type 1 HEMATOLOGIC: Negative Blood Disorders or Sickle Cell Disease PSYCHO/SOCIAL: Positive Bipolar Disorder, Depression and Anxiety OTHER HISTORY: Positive Hospitalization, Chicken Pox and Cancer; Negative Autoimmune Disease, Shingles, Blood Transfusions, Blood Transfusion Reaction, Anesthesia Reactions, MRSA, VRSA, Vancomycin-Resistant Enterococci or Clostridium Difficile Family History FAMILY HISTORY: Negative Family Psychiatric Problems, Family Respiratory Disorders, Family Cardiac Disorders, Family Gastrointestinal Problems, Family Cancer, Family Surgery or Family Anesthesia Reaction Surgical History SURGICAL: Positive Joint Replacement Social History SMOKING STATUS: Never smoker ED Exam Narrative Physical exam: GENERAL APPEARANCE: alert and oriented x 4, well-developed, well-nourished, nontoxic, morbidly obese, no acute distress VITALS: All vitals were reviewed and the pulse ox is 97% on room air, which is normal according to my interpretation. HEENT: Normocephalic, atraumatic; pupils equal, round, reactive to light; EOMI; mucous membranes pink, moist; oropharynx clear NECK: Supple LUNGS: CTABL; no wheezes, no rales, no rhonchi HEART: Regular rate, regular rhythm; normal S1, S2; no murmurs ABDOMEN: non distended; normal BS; soft, no tenderness, no guarding, no rebound; no masses, no organomegaly, no hernia BACK: no CVA tenderness EXTREMITIES: atraumatic; no edema NEUROLOGIC: awake; alert and oriented x4; cranial nerves II-XII grossly intact; no focal sensory or motor deficits PSYCHIATRIC: appropriate mood and affect SKIN: warm, dry, normal color; no rashes Course Course Course Narrative: CXR is ordered for determining the etiology of shortness of breath. Quality Measures none Orders Category Date Time Status CT Screening NOW Care 07/05/25 21:38 Active EKG (ED ONLY) *Do not use* NOW Care 07/05/25 21:[address] soft tissue neck w con Stat Exams 07/05/25 21:38 Completed EKG (ED Only) Stat Exams 07/05/25 21:38 Draft XR chest 1V portable Stat Exams 07/05/25 21:38 Completed BNP [B-Type Natriuretic Peptide] Stat Lab 07/05/25 22:10 Completed CBC Stat Lab 07/05/25 22:10 Completed CMP [Comprehensive Metabolic Panel] Stat Lab 07/05/25 22:10 Completed D-Dimer Stat Lab 07/05/25 22:10 Completed Troponin I Stat Lab 07/05/25 22:10 Completed Dexamethasone Inj [Decadron Inj] 10 mg Med 07/05/25 23:50 Discontinued Sodium Chloride 0.9% [Ns] 100 ml IV X1 HYDROcodone*/APAP 5/325 [[place] 5/325] Med 07/05/25 21:42 Discontinued 1 tab PO X1 ONE Morphine* Inj Med 07/05/25 23:50 Discontinued 4 mg IVP X1 ONE Ondansetron Inj [Zofran Inj] Med 07/05/25 23:50 Discontinued 4 mg IVP X1 ONE Vital Signs Vital signs: Vital Signs Temperature 98.9 F 07/05/25 21:23 Pulse Rate 99 07/05/25 21:23 Respiratory Rate 18 07/05/25 21:23 Blood Pressure 144/97 H 07/05/25 21:23 Pulse Oximetry (%) 97 07/05/25 21:23 Oxygen Delivery Method Room Air 07/05/25 21:23 Shortness of Breath / Dyspnea MDM Narrative MDM Narrative:: Scribe Attestation: 07/05/25 - Mi Brush am scribing for and in the presence of Dr. Sandy. 40yo male here with progressively worsening dyspnea on exertion and at rest x 3 weeks duration. No productive cough, fever, or chills. Please see PE findings. Lab markers demonstrated marginally elevated WBC 12.1, no anemia or thrombocytopenia, no left shift or bandemia. chemistries unremarkable except for Glucose mild elevated at 164. CXR demonstrates mild prominence of left ventricle, although no signs of overt fluid overload, infiltrate, or pneumothorax. CT neck also obtained which demonstrates slightly prominent right parotid and left submandibular. D-Dimer obtained and unremarkable. Patient administered low dose IV narcotic analgesics/steroids with overall subjective improvement. No signs of ischemia, infarction, or pericarditis. Additionally, no evidence of pneumonia, effusion, and low index suspicion of PE. Considered stable for discharge after extended period of observation. Will discharge home on inhaler, short course of antiinflammatories, and analgesic. Close follow-up with PMD recommended. Precautionary instructions issued. Patient data External records reviewed:: [facility] previous records (Per chart review, patient was seen here on 09/18/23 for fever.) Clinical information provided by:: patient Social determinants that could affect healthcare access:: none Patient has the following chronic illnesses:: DM, HTN How is presenting disease/condition affected by chronic disease/condition?: uneffected by Evaluation data The following diagnostics were reviewed and interpreted by me:: lab results, radiology exam(s) and EKG tracing(s) Lab and/or radiology exams considered but not ordered:: none Interpretation Summary: EKG done at 2143, sinus rhythm, rate of 99, no acute pathological ST segment changes, poor R wave progression throughout the precordium suggestive previous anterior lateral wall insult, normal intervals, left axis deviation, according to my interpretation. [facility] Report Signed Patient: LIANE RUIZ [facility]. Record#: [id number] Birthdate: 1985 Age/Sex: 40 / M Location: [facility] Attending Dr: Ordering Physician: Reg Greene Date of Service: 07/05/25 Procedure(s): XR chest 1V portable Accession Number(s): [id number] cc: Perry Ferrer MD; Giulia Crawford MD; Reg Greene~ Examination: PA chest single view Chest single view Date and time: July 07, 2025 10:34 PM Indications: Onset today. Findings: Minimal prominence of ventricle. No pneumonia or pulmonary edema. The osseous structures are intact Impression: No active disease Dictated By: Perry Ferrer MD Signed By: <Electronically signed by Perry Ferrer MD in OV> 07/05/25 2301 [facility] Signed Patient: LIANE RUIZ [facility]. Record#: [id number] Birthdate: 1985 Age/Sex: 40 / M Location: [facility] Attending Dr: Ordering Physician: Reg Greene Date of Service: 07/05/25 Procedure(s): CT soft tissue neck w con Accession Number(s): [id number] cc: Perry Ferrer MD; Giulia Crawford MD; Reg Greene~ Examination: CT soft tissue neck, with intravenous contrast. 2-D coronal reconstructions. 2-D sagittal reconstructions. Date and time of exam :July 05, 2025 10:50 PM Indications: Thyroid cancer diagnosis 2 years ago, with right-sided palpable neck mass 2 weeks. CTDI: vol (mGy):15.42 DLP: (mGycm):448 Technique: 1.25 mm axial sections of the neck of the obtained. Coronal and sagittal reconstructions have been obtained. Intravenous contrast administered 50 cc Isovue-370. Low dose protocols were performed. One or more of the following dose reduction techniques were used; automated exposure control, adjustment of the mA and/or KV according to patient size, use of iterative reconstruction technique. Findings: Symmetrical nasopharynx oropharynx No pathologic carotid triangle lymphadenopathy Larger right parotid gland Larger left submandibular gland The larynx appears normal Residual probable thyroid tissue axial image 66, on the right side, 16 mm Normal epiglottis Impression: Larger right parotid gland, consider right parotiditis Larger left submandibular gland, clinical correlation advised, MRI soft tissue neck follow-up would best assess for sialoadenitis 16mm nodule in the right paratracheal region probably residual thyroid tissue Recommend ultrasound soft tissue neck follow-up specific attention to the thyroid bed Dictated By: Perry Ferrer MD Signed By: <Electronically signed by Perry Ferrer MD in OV> 07/05/25 7307 Medications / Prescriptions Medications or Prescriptions considered but not ordered:: none Medication administrations:: Medication Administration History Discontinued Medications Hydrocodone Bitart/Acetaminophen (Hydrocodone/Apap 5/325 Tablet) 1 tab PO X1 ONE Stop: 07/05/25 21:43 Last Admin: 07/05/25 21:56 Dose: 1 tab Documented By: SONNY Dexamethasone Sodium Phosphate (10 mg/ Sodium Chloride) 101 mls @ 101 mls/hr IV X1 ONE Stop: 07/05/25 23:51 Last Infusion: 07/06/25 01:08 Dose: Infused Documented By: Admin: 07/06/25 00:04 Dose: 101 mls/hr Documented By: GORGE Morphine Sulfate (Morphine Sulf Inj 4 Mg/Ml Vial) 4 mg IVP X1 ONE Stop: 07/05/25 23:51 Last Admin: 07/06/25 00:04 Dose: 4 mg Documented By: GORGE Ondansetron HCl (Ondansetron Inj 2 Mg/Ml Inj 2 Ml) 4 mg IVP X1 ONE; Protocol Stop: 07/05/25 23:51 Last Admin: 07/06/25 00:03 Dose: 4 mg Documented By: GORGE see above Consultations Consultation(s) initiated? (list below): No Diagnosis Shortness of Breath Differential Diagnosis: congestive heart failure, community acquired pneumonia, pulmonary embolism and other (COVID, Influenza) Most likely diagnosis given after review of the tests above:: see clinical impression below Admission Indicated Admission indicated?: not indicated Admission Request Was there a request for admission?: No Disposition Plan Disposition Plan: Discharge Discharge Attestation Discharge Attestation: The patient and all family members were given an opportunity to ask questions and understood the discharge instructions. Discharge instructions specifically effects, indications for sooner follow up or return to the emergency department, and the expected course of current diagnosis. Patient condition: Stable Discharge Plan Plan Patient Disposition: HOME (Self Care) Discharge Disposition comment: Stable Prescriptions/Referrals Prescriptions/Med Rec: New hydrocodone-acetaminophen 5-325 mg tablet 1 tab PO Q8H MDD 3 tab PRN (Reason: pain) Qty: 14 0RF naproxen 250 mg tablet 250 mg PO BID PRN (Reason: pain) Qty: 10 0RF albuterol sulfate 90 mcg/actuation HFA aerosol inhaler 2 puff inhalation Q6H PRN (Reason: shortness of breath or wheezing) Qty: 6.7 0RF No Action hydrocodone-acetaminophen 7.5-325 mg Tablet 1 tab PO Q6H PRN (Reason: Pain) metformin 500 mg tablet 1,000 mg PO BID gabapentin 300 mg capsule 300 mg PO TID amlodipine 10 mg Tablet 10 mg PO DAILY sertraline 50 mg Tablet 100 mg PO DAILY glimepiride 4 mg Tablet 4 mg PO DAILY propranolol 80 mg Capsule,Extended Release 24 Hr 80 mg PO QDAY losartan 100 mg Tablet 100 mg PO QDAY aripiprazole [Abilify] 5 mg Tablet 5 mg PO QDAY hydrocodone-acetaminophen 10-325 mg tablet 1 tab PO Q6H MDD 4 PRN (Reason: pain (scale score 7-10)) Qty: 30 0RF docusate sodium [Colace] 100 mg capsule 100 mg PO BID Qty: 40 0RF ondansetron 4 mg tablet,disintegrating 4 mg PO Q6H PRN (Reason: nausea and vomiting) Qty: 20 0RF calcium carbonate [Calcium 500] 500 mg calcium (1,250 mg) tablet,chewable 500 mg PO BID Qty: 30 0RF lorazepam 0.5 mg tablet 0.5 mg PO Q12H PRN (Reason: Anxiety) Patient Comments: TAKE 1 TABLET BY MOUTH TWICE A DAY NEEDED FOR ANXIETY Trulicity 1.5 mg/0.5 mL pen injector 1.5 mg SUBCUT QWEEK Patient Comments: INJECT 0.5 MILLILITERS UNDER THE SKIN ONCE A WEEK --SAME TIME SAME DAY DIRECTED Referrals: Giulia Crawford MD [Primary Care Provider, Family Practice] - In 1 week Problem List Clinical Impression: Dyspnea Patient/Caregiver Discharge Instructions Discharge Activity: activity as tolerated Education Materials: ED Shortness of Breath (Dyspnea) Additional Instructions: Medications as directed. Follow-up with primary care doctor for consideration of outpatient stress testing. Return if worsening. Begin daily baby aspirin therapy. Print Language: Guamanian Stand Alone Forms: [place] Award Info., Patient Portal Info Letter
[2025-07-06] MEDS: ONDANSETRON INJ 2 MG/ML INJ 2 ML 4 MG IVP (00:03)
[2025-07-06] MEDS: DEXAMETHASONE INJ 10 MG in SODIUM CHLORIDE 0.9% 100 ML 101 MG IV (00:04)
[2025-07-06] MEDS: MORPHINE SULF INJ 4 MG/ML VIAL IVP (00:04)
[2025-07-06 00:19] LABS: D-Dimer < 250 ng/mL (<600)
[2025-07-06 01:09] VITALS: BP 116/73; PULSE 77; RESP 19; O2SAT 97
[2025-07-06 01:43] VITALS: PULSE 78
== END 2025-07-06 01:47 | disposition home or self-care (01) ==
PROVIDERS: Nurse Practitioner Family; Emergency Provider Emergency Medicine; PCP Family Medicine
DX: R06.00 Dyspnea, unspecified (principal); R07.89 Other chest pain
CPT/HCPCS: 36415; 70491; 71045; 80053; 83880; 84484; 85025; 85379; 93005; 96374; 96375; 99283; A4649; J1100; J2270; J2405; J7050; Q9967; A9270

== ENCOUNTER 2025-07-24 12:56 | Outpatient (RCR) | payer OTHER, MEDICARE, SELFPAY ==
--- NOTE | 2025-07-24 14:19 | CTCFLWUP_ITS ---
[facility] Pleite[facility] [address] [place], [place] [address] FOLLOW-UP NOTE Date: 07/24/2025 MR#: [id number] Name: LIANE RUIZ : 1985 Dx: C73 Malignant neoplasm of thyroid gland Identification. 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 1.2 x 1 x 1 cm papillary carcinoma follicular variant right lobe 7 positive nodes of 9 removed. Received 100 mCi of I-131 whole-body scan 08/08/2023 with negative for mets With no distant mets is considered stage I for differentiated thyroid cancer. Most recent ultrasound suggested mass in thyroid area. Went to ER 07/05/2025 with enlarging right sided neck mass and CT of the neck revealed large right parotid gland suggestive of parotitis and larger left submandibular gland. There was also a 16mm nodule right paratracheal region possible residual thyroid tissue. Patient's thyroglobulin has been slowly rising to 3.6 on 11/14/2024 5.1 on 07/03/2025. Patient also has been having very high blood pressure associated chest pains will be seeing her computer systems information director soon regarding possible stress test. Also has been referred to ENT group in [place]. Currently taking antibiotics for the swollen neck glands which still noticeable at the moment. A#!. 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 Received 100 mCi of radioiodine followed by total body iodine scan due to no distant mets after radioiodine considered stage I for his age. A#2. Steadily rising thyroglobulin with nodule right paratracheal region possible residual thyroid tissue noted in both ultrasound and recent CT. A#3. Has referral to ENT in [place]. Shall repeat ultrasound of neck and consider the need for biopsy. A#4. Reportedly has stress test evaluation by cardiology due to high blood pressure associated with chest symptoms. A#5. I will see him back in 2 months time. Cc: Abel Crawford MD Electronically signed by: Robb Bello M.D. 07/24/2025 2:17 PM
== END 2025-08-22 23:59 | disposition home or self-care (01) ==
LOC: SCTC 12:56
PROVIDERS: PCP Family Medicine; Referring Provider Family Medicine; Visit Provider Radiology Therapeutic Radiology
DX: C73 Malignant neoplasm of thyroid gland (principal); E89.0 Postprocedural hypothyroidism; Z92.3 Personal history of irradiation
CPT/HCPCS: 99213; G0463

== ENCOUNTER → 2025-08-13 | Outpatient (CLI) | payer OTHER, MEDICARE, SELFPAY ==
--- NOTE | 2025-08-13 08:51 | XR_ITS ---
EXAMINATION: PA lateral chest 2 views TECHNIQUE: Upright PA and lateral chest 2 views Date and time: August 13, 2025, 0856 hours, comparison 07/05/2025 INDICATIONS: Coughing beginning 5 days ago FINDINGS: Subsegmental atelectasis right lower lung zone Normal heart size No pneumonia or pulmonary edema The osseous structures are intact Surgical clips in the thyroid bed IMPRESSION: No pneumonia or pulmonary edema
== END | disposition home or self-care (01) ==
LOC: CDIM 08:47
PROVIDERS: PCP Family Medicine; Referring Provider Internal Medicine; Visit Provider Internal Medicine
DX: R05.9 Cough, unspecified (principal)
CPT/HCPCS: 71046

== ENCOUNTER → 2025-08-26 | Outpatient (CLI) | payer OTHER, MEDICARE, SELFPAY ==
[2025-08-26 08:40] LABS: Misc Send Out* See Sep Rpt
== END | disposition home or self-care (01) ==
PROVIDERS: PCP Family Medicine; Referring Provider Internal Medicine Cardiovascular Disease; Visit Provider Internal Medicine Cardiovascular Disease
DX: I20.89 Other forms of angina pectoris (principal); R07.89 Other chest pain; R06.02 Shortness of breath; I10 Essential (primary) hypertension
CPT/HCPCS: 36415; 84244

== ENCOUNTER → 2025-09-08 | Outpatient (CLI) | payer OTHER, MEDICARE, SELFPAY ==
--- NOTE | 2025-09-08 12:00 | XR_ITS ---
Examination thyroid sonography complete TECHNIQUE: Grayscale sonographic images thyroid lobes INDICATIONS: Worsening right-sided neck pain several weeks, right thyroidectomy 2022 FINDINGS: Thyroidectomy 2022 Mass in the right thyroid bed 3.2 x 1.7 x 1.3 cm with multiple lymph nodes IMPRESSION: Mass in the right thyroid bed 3.2 x 1.7 x 1.3 cm with multiple lymph nodes, please see the CT soft tissue neck study 07/05/2025
== END | disposition home or self-care (01) ==
PROVIDERS: PCP Radiology Therapeutic Radiology; Referring Provider Radiology Therapeutic Radiology; Visit Provider Radiology Therapeutic Radiology
DX: R22.1 Localized swelling, mass and lump, neck (principal); C73 Malignant neoplasm of thyroid gland
CPT/HCPCS: 76536

== ENCOUNTER → 2025-09-12 | Outpatient (CLI) | payer OTHER, MEDICARE, SELFPAY ==
[2025-09-22 07:00] LABS: ANA Screen, IFA NEGATIVE (NEGATIVE)
== END | disposition home or self-care (01) ==
LOC: COPL 10:12
PROVIDERS: PCP Family Medicine; Referring Provider Family Medicine; Visit Provider Family Medicine
DX: E11.65 Type 2 diabetes mellitus with hyperglycemia (principal); I10 Essential (primary) hypertension
CPT/HCPCS: 36415; 86038

== ENCOUNTER 2025-10-02 08:15 | Outpatient (RCR) | payer OTHER, MEDICARE, SELFPAY ==
--- NOTE | 2025-10-02 09:09 | CTCFLWUP_ITS ---
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 Received 100 mCi of radioiodine followed by total by iodine scan and due to no distant mets considered stage I for his age. Steadily rising thyroglobulin ( 5.1 on 07/03/2025) with nodule right paratracheal region possible residual thyroid tissue noted in both ultrasound (09/08/25) and recent CT.(/07/05/25) Saw ENT in [place] who ordered MRI which to be completed at the end of this month. Currently on Synthroid 125/150 mcg a day.. Euthyroid on 05/09/2025 TSH 1.75 f ree T41.39 T4 10.1. Patient states that he is currently somewhat tired and when he lays down he feels some discomfort as if there is some obstruction Is examined him today there is no definite adenopathy that is palpable patient's lungs clear. No mass in the thyroid. A#1. History of total thyroidectomy for papillary follicular thyroid cancer T2 N1 05/11/2023 Received 100 mCi radioiodine followed by total body iodine scan which showed no distant mets. Stage I based on his age. A#2. Both ultrasound and CT of the neck suggest presence of residual thyroid tissue or possible mets. Thyroglobulin 5.1 on 07/03/2025. A#3 Patient has been euthyroid. With [id number] Crawford primary physician. Will check thyroid functions today, along with thyroglobulin. A# 4 Saw ENT doctor in [place]. who ordered MRI of the neck which is pending. A#5. Will see him back in 2 months. Electronically signed by: Robb Bello M.D. 10/02/2025 9:07 AM
== END 2025-10-22 23:59 | disposition home or self-care (01) ==
LOC: SCTC 08:15
PROVIDERS: PCP Family Medicine; Referring Provider Family Medicine; Visit Provider Radiology Therapeutic Radiology
DX: C73 Malignant neoplasm of thyroid gland (principal); E89.0 Postprocedural hypothyroidism; Z79.890 Hormone replacement therapy
CPT/HCPCS: 99213; G0463

== ENCOUNTER → 2025-10-07 | Outpatient (CLI) | payer OTHER, MEDICARE, SELFPAY ==
[2025-10-07 09:12] LABS: Misc Send Out* See Sep Rpt
[2025-10-07 10:04] LABS: Free T4 (Free Thyroxine) 1.48 ng/dL (0.89-1.76); Thyroid Stimulating Hormone 4.33 uIU/mL (0.55-4.78)
[2025-10-14 06:55] LABS: Aldosterone* 7 ng/dL; Thyroglobulin Antibodies* <1 IU/mL (< OR = 1)
[2025-10-14 07:00] LABS: Renin Activity, Plasma* 0.49 ng/mL/h (0.25-5.82)
== END | disposition home or self-care (01) ==
LOC: COPL 08:51
PROVIDERS: PCP Family Medicine; Referring Provider Radiology Therapeutic Radiology; Visit Provider Internal Medicine Cardiovascular Disease
DX: C73 Malignant neoplasm of thyroid gland (principal); I20.89 Other forms of angina pectoris; R07.89 Other chest pain; R06.02 Shortness of breath; I10 Essential (primary) hypertension
CPT/HCPCS: 36415; 82088; 82384; 84244; 84439; 84443; 86800